=== PATIENT | male | born 1980 | race Caucasian/White ===

== ENCOUNTER 2023-05-13 12:23 | Emergency (ER) | payer OTHER, SELFPAY ==
[2023-05-13 12:27] VITALS: BP 153/82; PULSE 87; RESP 14; TEMP 36.7; O2SAT 98; BMI 27.3
--- NOTE | 2023-05-13 12:42 | ED_ITS ---
HPI - Extremity Injury (Upper) General Chief Complaint: Extremity Injury, Upper Stated Complaint: did something to back Time Seen by Provider: 05/13/23 12:33 Source: patient Mode of arrival: Ambulatory History of Present Illness HPI narrative: Patient presents for 4 days of R shoulder pain. Patient states that he tweaked his shoulder and has had persistent muscular pain since despite tylenol, motrin, and heat. Requesting evaluation and possible muscle relaxers. Feels subjective weakness in his R hand when he reaches for objects. Related Data Previous Rx's Medication Instructions Recorded methocarbamol 750 mg tablet 750 mg PO Q8H #30 tabs 05/13/23 Allergies Allergy/AdvReac Type Severity Reaction Status Date / Time Penicillins Allergy Intermediate Rash Verified 05/13/23 12:31 Review of Systems Review of Systems Narrative: CONSTITUTIONAL- Denies: fever, chills, fatigue HEENT- Denies: sore throat, nosebleed, vision changes RESPIRATORY- Denies: shortness of breath, cough, wheezing CARDIAC- Denies: chest pain, edema, orthopnea GI- Denies: abdominal pain, nausea, vomiting, constipation, diarrhea - Denies: frequency, dysuria, hematuria, flank pain MSK-reports: Right shoulder pain Denies: extremity pain, extremity swelling, joint swelling SKIN- Denies: rash, itching, burn, swelling NEUROLOGICAL- Reports: weakness Denies: headache, numbness, dizziness PSYCHIATRIC- Denies: anxiety, depression, suicidal ideation, homicidal ideation Patient History Social History Smoking Status: Current every day smoker Smoking Status: Current every day smoker alcohol intake frequency: a few times a week Substance Use Type: marijuana Exam Initial Vital Signs Initial Vital Signs: Vital Signs Temperature 98.1 F 05/13/23 12:27 Pulse Rate 87 05/13/23 12:27 Respiratory Rate 14 05/13/23 12:27 Blood Pressure 153/82 H 05/13/23 12:27 Pulse Oximetry 98 05/13/23 12:27 Oxygen Delivery Method Room Air 05/13/23 12:27 Const: Awake, alert, no acute distress, nontoxic appearing Eyes: PERRL, EOMI, conjunctiva normal ENT: Atraumatic, dentition normal, mucous membranes moist Cardiac: regular rate, regular rhythm RESP: unlabored, clear bilaterally, no wheezing GI: Atraumatic, soft, nontender, nondistended, no rebound, no guarding MSK: Atraumatic, full range of motion, pulses equal Skin: Warm, Dry, intact, no rashes Neuro: AO x3, CN II-XII grossly intact, 5/5 muscle strength all extremities, 2+ radial pulses bilaterally Psych: affect normal, mood normal, not suicidal, not homicidal Course Course Course Narrative: This is a well-appearing patient with musculoskeletal shoulder strain. Reports subjective weakness in his hand when he reaches for objects, however patient has 5/5 strength in proximal and distal muscle groups bilaterally, sensation intact bilaterally, no evidence of neurologic or vascular compromise. Palpable muscle spasm along trapezius muscle on the right-hand side. No indication for imaging at this time. Patient counseled on probable diagnosis of muscle spasm. Counseled to continue to take anti-inflammatories and Tylenol and to apply heat and ice as needed for comfort. We will add on short course of muscle relaxers. Patient given lidocaine patch, Decadron, Toradol while in the emergency departm ent. PCP follow-up advised. Orders Ordered: Discontinued Medications Dexamethasone (Dexamethasone 10 Mg/Ml Vial) 10 mg IM NOW ONE Stop: 05/13/23 12:42 Last Admin: 05/13/23 12:48 Dose: 10 mg Documented By: CHEMA Ketorolac Tromethamine (Ketorolac 30 Mg/Ml Vial) 30 mg IM NOW ONE Stop: 05/13/23 12:42 Last Admin: 05/13/23 12:47 Dose: 30 mg Documented By: CHEMA Lidocaine (Lidocaine Patch 1 Each Adh..Patch) 1 each TOP NOW ONE Stop: 05/13/23 12:42 Last Admin: 05/13/23 12:47 Dose: 1 each Documented By: CHEMA Vital Signs Vital signs: Vital Signs - 8 hr 05/13/23 12:27 Temperature 98.1 F Pulse Rate 87 Respiratory Rate 14 Blood Pressure 153/82 H Pulse Oximetry 98 Oxygen Delivery Method Room Air Discharge Plan Departure Patient Disposition: Home Clinical Impression: Muscle spasm Instructions: DI for Muscle Spasm Prescriptions: New methocarbamol 750 mg tablet 750 mg PO Q8H Qty: 30 0RF Stand Alone Forms: Patient Portal/API
[2023-05-13] MEDS: LIDOCAINE PATCH 1 EACH ADH..PATCH TOP (12:47)
[2023-05-13] MEDS: KETOROLAC 30 MG/ML VIAL IM (12:47)
[2023-05-13] MEDS: DEXAMETHASONE 10 MG/ML VIAL IM (12:48)
[2023-05-13 13:28] VITALS: BP 131/73; PULSE 71; RESP 20; O2SAT 99
== END 2023-05-13 13:30 | disposition home or self-care (01) ==
PROVIDERS: Emergency Provider Emergency Medicine
DX: M62.830 Muscle spasm of back (principal)
CPT/HCPCS: 96372; 99283; J1100; J1885